=== PATIENT | male | born 1970 | race Two or more races ===

== ENCOUNTER 2018-11-24 09:15 | Emergency (ER) | payer BC ==
[2018-11-24 09:28] VITALS: BP 113/72
--- NOTE | 2018-11-24 10:24 | UC ---
Back Pain HPI - HPI Summary HPI Summary: 48-year-old male presents with 5 day history of right upper back pain and spasm. States he was participating in the [employer] 6 days ago and he slipped off a vehicle that he was riding. He does not recall injuring his back or shoulder during the fall however the pain started the next day. He is complaining of sharp, spasming pain to the right upper back over the shoulder blade. States he took naproxen today with some relief in the pain. Denies fever, chills, chest pain, palpitations, diaphoresis, cough, shortness of breath , abdominal pain, nausea, or vomiting. - History of Current Complaint Chief Complaint: UCUpperExtremity Stated Complaint: BACK SPASM Time Seen by Provider: 11/24/18 10:12 Hx Obtained From: Patient Pain Intensity: 6 - Allergies/Home Medications Allergies/Adverse Reactions: Allergies Allergy/AdvReac Type Severity Reaction Status Date / Time No Known Allergies Allergy Verified 11/24/18 09:21 Home Medications: Home Medications Naproxen Sodium [Aleve] 440 mg PO ONCE 11/24/18 [History Confirmed 11/24/18] PMH/Surg Hx/FS Hx/Imm Hx Previously Healthy: Yes - Denies significant PMH - Surgical History Surgical History: None - Family History Known Family History: Positive: Non-Contributory - Social History Occupation: Employed Full-time Lives: With Family Alcohol Use: Occasionally Substance Use Type: Marijuana Smoking Status (MU): Never Smoked Tobacco Review of Systems All Other Systems Reviewed And Are Negative: Yes Constitutional: Negative: Fever, Chills Skin: Negative: Rash, Bruising Respiratory: Negative: Shortness Of Breath Cardiovascular: Negative: Palpitations, Chest Pain Gastrointestinal: Negative: Abdominal Pain, Vomiting, Nausea Genitourinary: Positive: Negative Motor: Negative: Weakness Neurovascular: Negative: Decreased Sensation Musculoskeletal: Positive: Other: - See HPI Neurological: Positive: Negative Is Patient Immunocompromised?: No Physical Exam - Summary Physical Exam Summary: GENERAL APPEARANCE: Well developed, well nourished, alert and cooperative, and appears to be in no acute distress. CARDIAC: Normal S1 and S2. No S3, S4 or murmurs. Rhythm is regular. There is no peripheral edema, cyanosis or pallor. Extremities are warm and well perfused. Capillary refill is less than 2 seconds. Peripheral pulses intact. LUNGS: Clear to auscultation without rales, rhonchi, wheezing or diminished breath sounds. ABDOMEN: Positive bowel sounds. Soft, nondistended, nontender. No guarding or rebound. No masses or hepatosplenomegally. MUSKULOSKELETAL: ROM intact to all extremities. No joint erythema or tenderness. Normal muscular development. Normal gait. BACK: Examination of the spine reveals normal posture, no spinal deformity or tenderness, or decreased range. There is some mild soft tissue tenderness to the right thoracic back over the scapula with spasm. SKIN: Skin normal color, texture and turgor with no lesions or eruptions. Triage Information Reviewed: Yes Vital Signs: Initial Vital Signs Temp 96.9 F 11/24/18 09:22 Pulse 55 11/24/18 09:22 Resp 16 11/24/18 09:22 BP 113/72 11/24/18 09:22 Pulse Ox 100 11/24/18 09:22 Vital Signs Reviewed: Yes Back Pain Course/Dx - Course Course Of Treatment: 48-year-old male presents with 5 day history of right upper back pain and spasm. States he was participating in the [employer] 6 days ago and he slipped off a vehicle that he was riding. He does not recall injuring his back or shoulder during the fall however the pain started the next day. He is complaining of sharp, spasming pain to the right upper back over the shoulder blade. States he took naproxen today with some relief in the pain. Denies fever, chills, chest pain, palpitations, diaphoresis, cough, shortness of breath , abdominal pain, nausea, or vomiting. Afebrile. Vital signs stable. Patient had mild soft tissue tenderness to the right thoracic back over the scapula with spasm and otherwise unremarkable exam. Recommending that he continue using an [id number] anti-inflammatory and I have prescribed him cyclobenzaprine 10 mg 1 tab every 8 hours as needed for back spasm. He is to follow-up with his primary care provider in 3 days if symptoms are not improving. Anticipatory guidance and warning symptoms are reviewed with the patient. Verbalizes understanding and agrees with plan of care. - Differential Dx/Diagnosis Differential Diagnosis/HQI/PQRI: Strain Provider Diagnosis: Back muscle spasm Discharge - Sign-Out/Discharge Documenting (check all that apply): Patient Departure All imaging exams completed and their final reports reviewed: No Studies - Discharge Plan Condition: Stable Disposition: HOME Prescriptions: Cyclobenzaprine HCl 10 mg PO Q8HR PRN #21 tablet PRN Reason: Spasms - Back Patient Education Materials: Muscle Spasm (ED) Referrals: Ralph Gaona MD [Primary Care Provider] - 3 Days Additional Instructions: Your symptoms appear to be from a muscle spasm in your back. Take [id number] naproxen (Aleve) 2 tabs twice a day for next 5 days then you may take as directed as needed. Use Flexeril (cyclobenzaprine) 10 mg 1 tab every 8 hours as needed for severe pain or spasm. Apply a heating pad to the affected area for 15-20 minutes at least 4 times a day to help relieve pain and relax the muscles. Follow up with your primary care provider in 3 days if no improvement in symptoms. Seek immediate medical attention in the emergency room if you have severe pain that is not managed with pain medication, chest pain, shortness of breath, severe abdominal pain, persistent vomiting, or any worsening of symptoms. - Billing Disposition and Condition Condition: STABLE Disposition: Home
[2018-11-24 13:57] LABS: HIV 4th Generation Negative (Negative)
== END 2018-11-24 10:30 | disposition home or self-care (01) ==
LOC: UCEAST 09:15
DX: M62.830 Muscle spasm of back (principal)
CPT/HCPCS: 36415; 87389; 99212; G0463